=== PATIENT | female | born 1970 | race Caucasian/White ===

== ENCOUNTER → 2017-08-15 | Outpatient (CLI) | payer OTHER ==
--- NOTE | 2017-08-15 17:48 | DIAGNOSTIC IMAGING REPORT ---
MRI OF THE CERVICAL SPINE WITH FLEXION-EXTENSION VIEWS AND CSF FLOW STUDY. CLINICAL HISTORY: CERVICOGENIC EVANS,CHIARI MALFORMATION COMPARISON STUDY: No previous studies for comparison. FINDINGS: Imaging was performed in the sagittal axial and oblique sagittal planes. Imaging was performed in flexion and extension. A CSF flow study was performed. There are postsurgical changes of an apparent prior suboccipital craniotomy. There are postsurgical changes of a posterior C2-C4 spinal fusion. No intrinsic cervical cord lesions are visualized. C2-3 level: There is no evidence of disc bulge or focal herniation. There is no evidence of spinal or foraminal stenosis C3-4 level: There is no evidence of disc bulge or focal herniation. There is no evidence of spinal or foraminal stenosis C4-5 level: There is a small central disc protrusion which deforms the anterior aspect of thecal sac. There is no significant foraminal narrowing. C5-6 level: There is a broad-based central disc protrusion, asymmetric to the right. There is mild right-sided foraminal narrowing. C6-7 level: There is a broad-based central disc protrusion. There is minimal spinal canal narrowing. There is mild left-sided foraminal narrowing. C7-T1 level: There is no evidence of disc bulge or focal herniation. There is no evidence of spinal or foraminal stenosis. There are no suspicious areas of marrow replacement. In the neutral position, there is minimally diminished CSF flow ventral to the cord at the mid cervical level. In flexion, there is increasing CSF flow dorsal to the cord and diminished flow within the mid ventral cord. In extension, no significant CSF flow is visualized either ventral or dorsal to the cord. IMPRESSION: 1. Postsurgical changes as described above 2. Small central disc protrusion at the C4-5 level with secondary deformity of the anterior thecal sac 3. Broad-based central disc protrusion slightly asymmetric to the right C5-6 level with mild right-sided foraminal narrowing 4. Broad-based central disc protrusion the C6-7 level with left-sided foraminal narrowing 5. Mildly diminished CSF flow ventral to the cord at the mid cervical level in both the neutral and flexed positions. No significant CSF flow is visualized either ventral or dorsal to the cord and extension. Electronically signed by: Octavio Sapp M.D. 08/15/2017 5:46 PM Dictated Date/Time: 08/15/2017 5:37 PM
== END | disposition home or self-care (01) ==
LOC: C.MRIBC 15:36
PROVIDERS: ATTEND Neurological Surgery
DX: R51 Headache (principal); Z98.890 Other specified postprocedural states; M50.221 Other cervical disc displacement at C4-C5 level; M50.222 Other cervical disc displacement at C5-C6 level; M50.223 Other cervical disc displacement at C6-C7 level